=== PATIENT | female | born 1945 | race Caucasian/White ===

== ENCOUNTER 2017-03-10 08:59 | Inpatient (IN) | payer MEDICARE ==
[~2017-03-10] VITALS: Ht 157.5 cm; Wt 65.0 kg
[2017-03-10 09:23] LABS: BASOPHILS % (AUTO) 0.1 % (0-1); EOSINOPHILS # (AUTO) 0.2 X10'3 (0-0.9); EOSINOPHILS % (AUTO) 1.1 % (0-6); HEMOGLOBIN 13.6 g/dl (12.0-16.0); LYMPHOCYTES # (AUTO) 1.7 X10'3 (1.1-4.8); LYMPHOCYTES % (AUTO) 9.9 % (21-51); MEAN CORPUSCULAR HEMOGLOBIN 30.7 PG (27.0-31.0); MEAN CORPUSCULAR VOLUME 90.3 FL (78-98); MEAN PLATELET VOLUME 7.1 FL (7.4-10.4); MONOCYTES # (AUTO) 1.3 X10'3 (0-0.9); MONOCYTES % (AUTO) 7.5 % (2-12); NEUTROPHILS # (AUTO) 13.9 X10'3 (1.8-7.7); NEUTROPHILS % (AUTO) 81.4 % (42-75); PLATELET COUNT 423 X10'3 (140-440); RED BLOOD COUNT 4.43 X10'6 (4.20-5.60); RED CELL DISTRIBUTION WIDTH 13.4 % (11.5-14.5); WHITE BLOOD COUNT 17.1 X10'3 (4.5-11.0)
[2017-03-10 09:36] LABS: D-DIMER 0.77 MG/L FEU (0-0.50); PARTIAL THROMBOPLASTIN TIME 27 SECONDS (22-32); PROTHROMBIN TIME 10.4 SECONDS (9.0-12.0)
[2017-03-10 09:39] LABS: ALANINE AMINOTRANSFERASE 31 U/L (12-78); ALBUMIN 3.2 G/DL (3.4-5.0); ALBUMIN/GLOBULIN RATIO 0.7 (1.1-1.5); ALKALINE PHOSPHATASE 80 IU/L (46-116); ANION GAP 8 (8-16); ASPARTATE AMINO TRANSFERASE 26 U/L (10-37); BILIRUBIN,TOTAL 0.4 MG/DL (0.1-1.0); BLOOD UREA NITROGEN 15 MG/DL (7-18); BUN/CREATININE RATIO 16.3 (6.6-38.0); CALCIUM 9.1 MG/DL (8.5-10.1); CHLORIDE 100 MMOL/L (99-107); CREATININE 0.92 MG/DL (0.40-0.90); GLUCOSE 129 MG/DL (70-104); SODIUM 135 MMOL/L (135-145); TOTAL CARBON DIOXIDE 26.8 MMOL/L (24-32); eGFR 60 ML/MIN
[2017-03-10] MEDS ORDERED: iohexol 350MG/ML 100ml bottle IV ONE (10:15)
[2017-03-10] MEDS ORDERED: morphine 2 MG/ML inj. syringe IV ONE ×2 (11:20→13:05)
[2017-03-10] MEDS ORDERED: ondansetron/PF 4mg/2ml inj IV ONE (11:20)
[2017-03-10] MEDS ORDERED: levoFLOXACIN-Levaquin 750MG/D5 150 ML IV STA (13:08)
[2017-03-10] MEDS ORDERED: SYN0.088T PO (14:20)
[2017-03-10] MEDS ORDERED: MV,I66.7 PO (14:20)
[2017-03-10] MEDS ORDERED: IBUP-1984 PO (14:20)
[2017-03-10] MEDS ORDERED: MULT-1085 PO (14:20)
[2017-03-10] MEDS ORDERED: CALC-331 PO (14:20)
[2017-03-10] MEDS ORDERED: HYDR-565 PO (14:20)
[2017-03-10] MEDS ORDERED: ipratropium/albuterol 3ml nebule NEB PRN (14:55)
[2017-03-10] MEDS ORDERED: acetaminophen 325mg tablet PO PRN (14:55)
[2017-03-10] MEDS ORDERED: morphine 2 MG/ML inj. syringe IV PRN ×2 (14:55)
[2017-03-10] MEDS ORDERED: mag hydrox/Alum hydrox/simeth 30ml oral suspension PO PRN (14:55)
[2017-03-10] MEDS ORDERED: magnesium hydroxide 30ml (MOM) UD suspension PO PRN (14:55)
[2017-03-10] MEDS ORDERED: ondansetron/PF 4mg/2ml inj IV PRN (14:55)
[2017-03-10] MEDS ORDERED: LIDOcaine/PRILOcaine 5gm cream TP PRN (15:30)
[2017-03-10 15:48] LABS: C-REACTIVE PROTEIN 23.11 MG/DL (0.0-0.5)
[2017-03-10 15:57] LABS: CLARITY,URINE CLEAR (Clear); COLOR,URINE YELLOW (Yellow); GLUCOSE, URINE NEGATIVE (Neg); KETONES,URINE NEGATIVE (Neg); LEUKOCYTE ESTERASE ,URINE NEGATIVE (Neg); NITRITES, URINE NEGATIVE (Neg); OCCULT BLOOD,URINE NEGATIVE (Neg); PROTEIN,URINE NEGATIVE (Neg); UROBILINOGEN,URINE 0.2 E.U/dL (0.2-1.0)
[2017-03-10 16:02] LABS: UA COLLECTION TYPE CLN CATCH MIDSTREAM
[2017-03-10] MEDS: HYDROcodone/acetaminophen 10/325mg tab PO PRN ×3 (16:06→23:59)
[2017-03-10] MEDS: methylPREDNISolone sod succ 125mg/2ml vial IV SCH ×2 (16:09→19:51)
[2017-03-10 18:00] VITALS: BP 135/88
[2017-03-10 22:00] VITALS: BP 102/76
[2017-03-11 02:00] VITALS: BP 103/71
[2017-03-11] MEDS: HYDROcodone/acetaminophen 10/325mg tab PO PRN ×3 (04:06→13:09)
[2017-03-11 06:27] LABS: BASOPHILS % (AUTO) 0.2 % (0-1); EOSINOPHILS # (AUTO) 0.2 X10'3 (0-0.9); EOSINOPHILS % (AUTO) 1.2 % (0-6); HEMATOCRIT 34.4 % (35.0-45.0); HEMOGLOBIN 11.6 g/dl (12.0-16.0); LYMPHOCYTES # (AUTO) 0.9 X10'3 (1.1-4.8); LYMPHOCYTES % (AUTO) 5.6 % (21-51); MEAN CORPUSCULAR HEMOGLOBIN 30.7 PG (27.0-31.0); MEAN CORPUSCULAR HGB CONC 33.9 % (33.0-36.5); MEAN CORPUSCULAR VOLUME 90.6 FL (78-98); MONOCYTES # (AUTO) 0.3 X10'3 (0-0.9); MONOCYTES % (AUTO) 1.8 % (2-12); NEUTROPHILS # (AUTO) 14.2 X10'3 (1.8-7.7); NEUTROPHILS % (AUTO) 91.2 % (42-75); PLATELET COUNT 327 X10'3 (140-440); RED CELL DISTRIBUTION WIDTH 13.2 % (11.5-14.5); WHITE BLOOD COUNT 15.6 X10'3 (4.5-11.0)
[2017-03-11 06:30] VITALS: BP 108/66
[2017-03-11 07:00] LABS: ALANINE AMINOTRANSFERASE 17 U/L (12-78); ALBUMIN 2.7 G/DL (3.4-5.0); ALBUMIN/GLOBULIN RATIO 0.6 (1.1-1.5); ALKALINE PHOSPHATASE 80 IU/L (46-116); ANION GAP 9 (8-16); ASPARTATE AMINO TRANSFERASE 10 U/L (10-37); BILIRUBIN,TOTAL 0.3 MG/DL (0.1-1.0); BLOOD UREA NITROGEN 11 MG/DL (7-18); BUN/CREATININE RATIO 15.9 (6.6-38.0); CALCIUM 9.1 MG/DL (8.5-10.1); CHLORIDE 100 MMOL/L (99-107); CREATININE 0.69 MG/DL (0.40-0.90); GLUCOSE 151 MG/DL (70-104); POTASSIUM 4.4 MMOL/L (3.5-5.1); SODIUM 136 MMOL/L (135-145); TOTAL CARBON DIOXIDE 26.7 MMOL/L (24-32); TOTAL PROTEIN 7.4 G/DL (6.4-8.2); eGFR 84 ML/MIN
[2017-03-11] MEDS ORDERED: iohexol 300mg/ml 100ml inj. ONE (07:47)
[2017-03-11] MEDS ORDERED: calcium carbonate 500mg tablet PO SCH (08:00)
[2017-03-11] MEDS ORDERED: FOLIC ACID PO SCH (08:00)
[2017-03-11] MEDS ORDERED: enoxaparin 40mg/0.4ml syringe SQ SCH (08:00)
[2017-03-11] MEDS ORDERED: MV IRON MIN PO SCH (08:00)
[2017-03-11] MEDS ORDERED: multivitamins, therapeutics tablet PO SCH (08:00)
[2017-03-11] MEDS ORDERED: levoTHYROXINE 88mcg tablet PO SCH (08:00)
[2017-03-11] MEDS ORDERED: BIOTIN PO SCH (08:00)
[2017-03-11] MEDS: methylPREDNISolone sod succ 125mg/2ml vial IV SCH (08:25)
[2017-03-11] MEDS ORDERED: pantoprazole 40mg Tablet.DR PO SCH (09:00)
[2017-03-11 11:00] VITALS: BP 107/74
[2017-03-11] MEDS ORDERED: PRED20TA PO (12:03)
[2017-03-11] MEDS ORDERED: INDO25CA PO (12:03)
[2017-03-11] MEDS ORDERED: HYDR-565 PO (12:03)
[2017-03-11 15:00] VITALS: BP 114/69
[2017-03-12] MEDS ORDERED: pneumococcal 23-VAL P-sac vacc 25 mcg/0.5ml vial IMVAC ONE (10:00)
== END 2017-03-11 15:50 | disposition home or self-care (01) | DRG 315 ==
LOC: ER 08:59 → ED HOLD 14:52 → PCU 3S 16:38
PROVIDERS: ADMIT Family Medicine; ATTEND Family Medicine
PROC: B32T1ZZ Computerized Tomography (CT Scan) of Left Pulmonary Artery using Low Osmolar Contrast (ICD-10-PCS; 2017-03-10)
PROC: B3201ZZ Computerized Tomography (CT Scan) of Thoracic Aorta using Low Osmolar Contrast (ICD-10-PCS; 2017-03-10)
PROC: B32S1ZZ Computerized Tomography (CT Scan) of Right Pulmonary Artery using Low Osmolar Contrast (ICD-10-PCS; 2017-03-10)
PROC: BW211ZZ Computerized Tomography (CT Scan) of Abdomen and Pelvis using Low Osmolar Contrast (ICD-10-PCS; principal; 2017-03-11)
DX: I31.9 Disease of pericardium, unspecified (principal); J90 Pleural effusion, not elsewhere classified; R65.10 Systemic inflammatory response syndrome (SIRS) of non-infectious origin without acute organ dysfunction; I31.3 Pericardial effusion (noninflammatory); E03.9 Hypothyroidism, unspecified; Z77.22 Contact with and (suspected) exposure to environmental tobacco smoke (acute) (chronic); Z90.722 Acquired absence of ovaries, bilateral; Z90.710 Acquired absence of both cervix and uterus; Z79.899 Other long term (current) drug therapy; Z79.01 Long term (current) use of anticoagulants; Z85.43 Personal history of malignant neoplasm of ovary
CPT/HCPCS: 36415; 71045; 71275; 74176; 74177; 80053; 81003; 83605; 83880; 84145; 84443; 84484; 85025; 85379; 85610; 85651; 85730; 86140; 87040; 87070; 87502; 87503; 93306; 94760; 96365; 96375; 96376; 99291; J1650; J1956; J2270; J2405; J2930; J7030; Q9967

== ENCOUNTER 2017-04-29 13:47 | Emergency (ER) | payer MEDICARE ==
[~2017-04-29] VITALS: Ht 157.5 cm; Wt 63.0 kg
[~2017-04-29 13:47] MED LIST: CALC-331 PO; HYDR-565 PO; INDO25CA PO; MULT-1085 PO; MV,I66.7 PO; SYN0.088T PO
[2017-04-29 14:15] LABS: BASOPHILS # (AUTO) 0.1 X10'3 (0-0.2); BASOPHILS % (AUTO) 0.6 % (0-1); EOSINOPHILS # (AUTO) 0.4 X10'3 (0-0.9); EOSINOPHILS % (AUTO) 3.4 % (0-6); HEMATOCRIT 34.9 % (35.0-45.0); HEMOGLOBIN 12.2 g/dl (12.0-16.0); LYMPHOCYTES % (AUTO) 24.7 % (21-51); MEAN CORPUSCULAR HEMOGLOBIN 29.6 PG (27.0-31.0); MEAN CORPUSCULAR HGB CONC 34.9 % (33.0-36.5); MEAN CORPUSCULAR VOLUME 84.8 FL (78-98); MEAN PLATELET VOLUME 7.1 FL (7.4-10.4); MONOCYTES # (AUTO) 0.9 X10'3 (0-0.9); MONOCYTES % (AUTO) 7.2 % (2-12); NEUTROPHILS # (AUTO) 7.8 X10'3 (1.8-7.7); NEUTROPHILS % (AUTO) 64.1 % (42-75); PLATELET COUNT 443 X10'3 (140-440); RED BLOOD COUNT 4.12 X10'6 (4.20-5.60); RED CELL DISTRIBUTION WIDTH 15.2 % (11.5-14.5); WHITE BLOOD COUNT 12.1 X10'3 (4.5-11.0)
[2017-04-29 14:25] LABS: PARTIAL THROMBOPLASTIN TIME 28 SECONDS (22-32); PROTHROMBIN TIME 10.1 SECONDS (9.0-12.0)
[2017-04-29 14:31] LABS: ALANINE AMINOTRANSFERASE 20 U/L (12-78); ALBUMIN 3.3 G/DL (3.4-5.0); ALBUMIN/GLOBULIN RATIO 0.7 (1.1-1.5); ALKALINE PHOSPHATASE 85 IU/L (46-116); ANION GAP 11 (8-16); ASPARTATE AMINO TRANSFERASE 14 U/L (10-37); BILIRUBIN,TOTAL 0.4 MG/DL (0.1-1.0); BLOOD UREA NITROGEN 21 MG/DL (7-18); CALCIUM 9.2 MG/DL (8.5-10.1); CHLORIDE 98 MMOL/L (99-107); CREATININE 0.84 MG/DL (0.40-0.90); GLUCOSE 88 MG/DL (70-104); POTASSIUM 3.9 MMOL/L (3.5-5.1); SODIUM 135 MMOL/L (135-145); TOTAL CARBON DIOXIDE 25.7 MMOL/L (24-32); TOTAL PROTEIN 7.8 G/DL (6.4-8.2); eGFR 67 ML/MIN
[2017-04-29] MEDS ORDERED: HYDROcodone/acetaminophen 10/325mg tab PO ONE ×2 (14:50→18:10)
[2017-04-29] MEDS ORDERED: HYDR-565 PO (20:19)
[2017-04-29] MEDS ORDERED: IBUP-1984 PO (20:19)
[2017-04-29 20:33] VITALS: BP 129/78
== END 2017-04-29 20:36 | disposition home or self-care (01) ==
LOC: ER 13:48
DX: R07.89 Other chest pain (principal); E03.9 Hypothyroidism, unspecified; Z86.19 Personal history of other infectious and parasitic diseases; Z90.710 Acquired absence of both cervix and uterus; Z85.43 Personal history of malignant neoplasm of ovary; Z79.899 Other long term (current) drug therapy
CPT/HCPCS: 36415; 71045; 80053; 84484; 85025; 85610; 85730; 93005; 93308; 99285